=== PATIENT | female | born 2000 | race Caucasian/White ===

== ENCOUNTER 2021-03-06 16:38 | Emergency (ER) | payer MEDICAID, SELFPAY ==
[2021-03-06 16:45] VITALS: BP 130/55; PULSE 77; RESP 16; TEMP 36.2; O2SAT 100
--- NOTE | 2021-03-06 17:42 | ED.EAR ---
HPI - Ear Problem General Chief complaint: Ear Stated complaint: ear pain Time Seen by Provider: 03/06/21 17:30 Source: patient, family, RN notes reviewed and old records reviewed Mode of arrival: ambulatory Limitations: no limitations History of Present Illness HPI Narrative: 20 year old female who presents to [facility] care with complaints of left ear pain which she rates as 5/10 and describes as aching for the past 3 days. Patient states that she has taken some Ibuprofen and Tylenol for her discomfort. has noticed some clear drainage from her ear. Patient denies any sinus drainage, sinus pressure, cough, sore throat or any known episodes of fevers, chills or sweats. Patient denies any previous history of frequent ear infection, denies any recent swimming or injury to her ear. MD Complaint: ear pain Location: left ear Duration: constant Severity: moderate Discharge from ear: Reports yes - clear Treatment prior to arrival: other (OTC analgesics) Related Data Allergies Allergy/AdvReac Type Severity Reaction Status Date / Time No Known Allergies Allergy Verified 03/06/21 16:56 Review of Systems Review of Systems: Narrative: CONSTITUTIONAL: Denies fever, chills, or sweats. EYES: Denies visual changes, redness, or discharge. ENT: Denies rhinorrhea, congestion, sore throat, reports left ear otalgia. CARDIOVASCULAR: Denies chest pain, palpitations, or edema. RESPIRATORY: Denies cough or dyspnea. GASTROINTESTINAL: Denies abdominal pain, nausea, vomiting, or diarrhea. GENITOURINARY: Denies dysuria or hematuria. SKIN: Denies rash or itching. MUSCULOSKELETAL: Denies back pain, joint pain, or myalgia. NEUROLOGIC: Denies headache, numbness, or weakness. PSYCHIATRIC: Denies anxiety or depression. All systems reviewed & are unremarkable except as noted in HPI and below PMFSH Past Medical History Medical History (Updated 03/09/21 @ 13:51 by Nurys Navarrete NP) Heart murmur Narcolepsy Surgical History Surgical History (Updated 03/09/21 @ 13:47 by Nurys Navarrete NP) History of tonsillectomy Family History Family History (Updated 03/09/21 @ 13:49 by Nurys Navarrete NP) Other Cancer Diabetes mellitus Social History Social History (Updated 03/09/21 @ 13:48 by Nurys Navarrete NP) Tobacco type: e-cigarettes/vaping Alcohol intake: current Alcohol use details: social Substance use: never Living arrangements: with family Gender identity (if verbalized by the patient): Female Comments At time of signature, agree with nursing past medical, surgical, social and family history. There is no relevant family history pertinent to the presenting complaint Exam Narrative: Exam Narrative: GENERAL: Well-appearing, well-nourished, and in no acute distress. HEAD: Normocephalic, atraumatic. EYES: PERRLA and EOMI. ENT: Nares clear, no rhinorrhea or epistaxis. Mucous membranes moist.Left ear TM redness with dull light reflex, right ear normal, throat pink with no lesions or exudates. NECK: Supple.no lymphadenopathy CHEST: Clear to auscultation. No respiratory distress.SAO2 100% on room air. HEART: Regular rate and rhythm. No murmur heard. Normal peripheral pulses. ABDOMEN: Soft, nontender, nondistended, normal active bowel sounds. EXTREMITIES: Normal range of motion. No edema. SKIN: Warm, dry, no rash. NEURO: No focal deficits. Alert and oriented x3. Course Vital Signs Vital signs: Vital Signs Temperature 36.2 C L 03/06/21 16:45 Pulse Rate 77 03/06/21 16:45 Respiratory Rate 16 03/06/21 16:45 Blood Pressure 130/55 L 03/06/21 16:45 Pulse Oximetry 100 03/06/21 16:45 Temperature 36.2 C L 03/06/21 16:45 Pulse Rate 77 03/06/21 16:45 Respiratory Rate 16 03/06/21 16:45 Blood Pressure 130/55 L 03/06/21 16:45 Pulse Oximetry 100 03/06/21 16:45 Medical Decision Making Differential Diagnosis Differential Diagnosis: Otitis media left ear, left ear effusion, URI, eustachian tube
== END 2021-03-06 17:47 | disposition home or self-care (01) ==
PROVIDERS: Emergency Provider Registered Nurse
DX: H65.02 Acute serous otitis media, left ear (principal); F17.200 Nicotine dependence, unspecified, uncomplicated; R01.1 Cardiac murmur, unspecified
CPT/HCPCS: 99203; G0463